=== PATIENT | male | born 1970 | race Caucasian/White ===

== ENCOUNTER 2018-05-16 01:36 | Emergency (ER) | payer OTHER ==
--- NOTE | 2018-05-16 01:47 | PDOC ---
History of Present Illness - General Stated Complaint: ABD PAIN Time Seen by Provider: 05/16/18 01:44 - History of Present Illness Initial Comments: 05/16/18 01:45 48 yo M with h/o gastritis, appendectomy who p/w RLQ abdominal pain. 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 + Nausea without vomiting. In normal state of health before sleeping. Normal bowel habits and PO intake. Denies abdominal trauma. Denies h/o similar sx. Pain not alleviated with Motrin. Patient denies N/V, F,C, CP, palpitations, SOB, urinary complaints, abdominal pain, diarrhea, constipation, hematuria, testicular pain, BPR, lightheadedness, weakness, sensory changes. PMHx: as noted above. ROS: as noted SHx: Denies tobacco use, IVDA. Social Etoh. Allergies: NKDA Past History - Past Medical History Allergies/Adverse Reactions: Allergies Allergy/AdvReac Type Severity Reaction Status Date / Time No Known Allergies Allergy Verified 05/16/18 01:58 Home Medications: Ambulatory Orders Ibuprofen [Motrin -] 600 mg PO TID #21 tablet 05/16/18 Tamsulosin HCl [Flomax -] 0.4 mg PO DAILY 7 Days #7 capsule 05/16/18 Anemia: No Asthma: No Cancer: No Cardiac Disorders: No CVA: No COPD: No CHF: No Dementia: No Diabetes: No GI Disorders: No Disorders: No HTN: No Hypercholesterolemia: No Liver Disease: No Seizures: No Thyroid Disease: No - Surgical History Abdominal Surgery: No Appendectomy: Yes Cardiac Surgery: No Cholecystectomy: No Lung Surgery: No Neurologic Surgery: No Orthopedic Surgery: No - Suicide/Smoking/Psychosocial Hx Smoking Status: No Smoking History: Never smoked Number of Cigarettes Smoked Daily: 0 Hx Alcohol Use: Yes (on the weekend) Drug/Substance Use Hx: No Substance Use Type: None Hx Substance Use Treatment: No Review of Systems - Review of Systems Comments:: 05/16/18 01:45 GENERAL/CONSTITUTIONAL: No fever or chills. No weakness. HEAD, EYES, EARS, NOSE AND THROAT: No change in vision. No ear pain or discharge. No sore throat. CARDIOVASCULAR: No chest pain or shortness of breath RESPIRATORY: No cough, wheezing, or hemoptysis. GASTROINTESTINAL: + Abdominal pain and nausea. No vomiting, diarrhea or constipation. GENITOURINARY: No dysuria, frequency, or change in urination. MUSCULOSKELETAL: No joint or muscle swelling or pain. No neck or back pain. SKIN: No rash NEUROLOGIC: No headache, vertigo, loss of consciousness, or change in strength/ sensation. ENDOCRINE: No increased thirst. No abnormal weight change HEMATOLOGIC/LYMPHATIC: No anemia, easy bleeding, or history of blood clots. ALLERGIC/IMMUNOLOGIC: No hives or skin allergy. *Physical Exam - Physical Exam Comments: 05/16/18 01:46 GENERAL: Awake, alert, and fully oriented, in no acute distress HEAD: No signs of trauma, normocephalic, atraumatic EYES: PERRLA, EOMI, sclera anicteric, conjunctiva clear ENT: Hearing grossly normal, nares patent, oropharynx clear without exudates. Moist mucosa NECK: Normal ROM, supple, no lymphadenopathy, JVD, or masses LUNGS: No distress, speaks full sentences, clear to auscultation bilaterally HEART: Regular rate and rhythm, normal S1 and S2, no murmurs, rubs or gallops, peripheral pulses normal and equal bilaterally. ABDOMEN: + RLQ/suprpapubic ttp. Soft, NDS normoactive bowel sounds. No guarding , no rebound. No masses. Neg CVA ttp. EXTREMITIES : Normal inspection, Normal range of motion, no edema. No clubbing or cyanosis. SKIN: Warm, Dry, normal turgor, no rashes or lesions noted ED Treatment Course - LABORATORY CBC & Chemistry Diagram: 05/16/18 01:59 05/16/18 01:59 Medical Decision Making - Medical Decision Making 05/16/18 02:06 48 yo M with h/o gastritis, nephrolithiasis, appendectomy who p/w RLQ abdominal pain. VSS, AF, + RLQ abdominal ttp. Will consider cystitis, nephrolithiasis diverticulitis, colitis, constipation. Low suspicion AAA, Ao dissection, pyelnoeprhitis. Pain control, hydration, reassess. Ed Course: CBC, CMP, UA, UCx. NS, Zofran, Tylenol 05/16/18 02:40 05/16/18 03:12 UA: 2+ LE, Neg nitrite, 3+ Blood, 1070 RBC, 38 WBC 11/30/18 03:13 CBC,CMP: Unremarkable 05/16/18 03:[address] 05/16/18 04:56 CT: 2.9x5.3 mm stone in proximal R ureter near ureteropelvic junction, with slight right hydronephrosis. non obstructing right renal stone as well. 1.3 cm left renal pelvis stone, non obstructing. no left ureteral stones. left renal cysts. one cyst measures 10 cm. Patient stable for d/c with return precautions. Advised tp f/u with PMD, and urology. Tamsulosin and Ibuprofen sent to pharmacy. *DC/Admit/Observation/Transfer Diagnosis at time of Disposition: Abdominal pain Qualifiers: Abdominal location: left lower quadrant Qualified Code(s): R10.32 - Left lower quadrant pain - Discharge Dispostion Condition at time of disposition: Stable Decision to Admit order: No - Prescriptions Prescriptions: Ibuprofen [Motrin -] 600 mg PO TID #21 tablet Tamsulosin HCl [Flomax -] 0.4 mg PO DAILY 7 Days #7 capsule - Referrals Referrals: Nam Vital [Primary Care Provider] - Elijah Sawant MD [Staff Physician] - - Patient Instructions Printed Discharge Instructions: DI for Abdominal Pain-Adult Additional Instructions: Please return to the emergency department with any new or worsening symptoms or concerns. Please follow up with your urology within 72 hours. Please take ibuprofen and tamsulosin as prescribed. - Post Discharge Activity - Attestations Physician Attestion: 05/16/18 01:46 I attest to the information provided in this note.
[2018-05-16 01:59] VITALS: BMI 30.9
[2018-05-16] MEDS ORDERED: ONDANSETRON 4 MG/2 ML VIAL IVPB ONE (02:01)
[2018-05-16] MEDS ORDERED: ACETAMINOPHEN 1000 MG/100 ML VIAL (NON FORMULARY) IVPB ONE (02:02)
[2018-05-16] MEDS ORDERED: SODIUM CHLORIDE 1,000 ML IV STA (02:02)
[2018-05-16] MEDS ORDERED: ONDANSETRON 4 MG/2 ML VIAL ONE (02:04)
[2018-05-16] MEDS ORDERED: ACETAMINOPHEN INJECTION 100 ML IVPB ONE (02:04)
[2018-05-16 02:13] LABS: BASO % 0.4 % (0-2.0); EOS % 3.4 % (0-4.5); HEMOGLOBIN 14.3 GM/dL (11.7-16.9); LYMPH % 35.2 % (8-40); MCH 31.7 pg (25.7-33.7); MCHC 34.8 g/dl (32.0-35.9); MEAN CELL VOLUME 91.1 fl (80-96); MEAN PLT VOLUME 9.5 fl (7.5-11.1); MONO % 9.4 % (3.8-10.2); NEUT % 51.6 % (42.8-82.8); PLATELET COUNT 256 K/MM3 (134-434); RDW 12.7 % (11.9-15.9); WHITE BLOOD COUNT 4.7 K/mm3 (4.0-10.0)
[2018-05-16 02:17] LABS: URINE APPEARANCE CLOUDY; URINE BILIRUBIN NEGATIVE (<2.0 mg/dL); URINE COLOR YELLOW; URINE GLUCOSE (UA) NEGATIVE (NEGATIVE); URINE KETONE NEGATIVE (NEGATIVE); URINE LEUK ESTERASE TRACE (NEGATIVE); URINE NITRITE NEGATIVE (NEGATIVE); URINE PROTEIN 2+ (NEGATIVE); URINE UROBILINOGEN NEGATIVE mg/dL (0.2-1.0)
--- NOTE | 2018-05-16 02:39 | PDOC ---
Attending Attestation - Resident Resident Name: Adán Royal - ED Attending Attestation I have performed the following: I have examined & evaluated the patient, The case was reviewed & discussed with the resident, I agree w/resident's findings & plan, Exceptions are as noted - HPI HPI: 05/16/18 02:38 48y M hx of kidney stones presents with RLQ pain since this evening, woke him from sleep, is sharp, radiates slightly up his flank, associated nausea/ vomiting x 2 that was nonbilious nonbloody. Pt was fine last night wihtout any discomfort. no bpr, dairrhea, dysuria, testciular pain, f/c, cp, sob, penile dc no improvement with motrin prior to arrival. vitals normal here - Physicial Exam PE: 05/16/18 02:50 GENERAL: The patient is awake, alert, and fully oriented, Nontoxic - in no acute distress. HEAD: Normocephalic, atraumatic. EYES: extraocular movements intact, sclera anicteric, conjunctiva clear. ENT: Normal voice, Moist mucous membranes. NECK: Normal range of motion, supple LUNGS: Breath sounds equal, clear to auscultation bilaterally. No wheezes, no rhonchi, no rales. HEART: Regular rate and rhythm, normal S1 and S2 without murmur, rub or gallop. ABDOMEN: Soft, nontender, . No guarding, no rebound. . No CVA tenderness EXTREMITIES: Normal range of motion, NEUROLOGICAL: No facial assymetry, Normal speech, PSYCH: Normal mood, normal affect. SKIN: Warm, Dry, normal turgor, - Medical Decision Making 05/16/18 02:50 suspect possible kidney stones will ck UA, basic labs tylenol for pain sp appendectomy will reassess 05/16/18 03:32 pts UA cw hematuria will obtain spiral ct to r/o stone 05/16/18 05:11 ct spiral noted for 2.9 x 5.3mm stone pts pain is controled no signs of infection will dc with urology fu return precautions were discussed
[2018-05-16 02:42] LABS: EPI CELLS RARE /HPF (FEW); URINE MUCUS MANY
[2018-05-16 02:59] LABS: ALK PHOS 86 U/L (45-117); ANION GAP 8 MMOL/L (8-16); BILIRUBIN,TOTAL 0.6 mg/dL (0.2-1); BLOOD UREA NITROGEN 19 mg/dL (7-18); CALCIUM 8.7 mg/dL (8.5-10.1); CHLORIDE 105 mmol/L (98-107); CO2 27 mmol/L (21-32); GLUCOSE,RANDOM 100 mg/dL (74-106); SGOT/AST 28 U/L (15-37); SGPT/ALT 47 U/L (13-61); SODIUM 140 mmol/L (136-145); TOT PROT 7.2 g/dl (6.4-8.2)
[2018-05-16 05:31] VITALS: BP 101/67; PULSE 62; TEMP 98.2
== END 2018-05-16 05:32 | disposition home or self-care (01) ==
LOC: JER 01:36
PROC: 3E033NZ Introduction of Analgesics, Hypnotics, Sedatives into Peripheral Vein, Percutaneous Approach (ICD-10-PCS; principal; 2018-05-16)
PROC: 3E033GC Introduction of Other Therapeutic Substance into Peripheral Vein, Percutaneous Approach (ICD-10-PCS; 2018-05-16)
PROC: 3E0337Z Introduction of Electrolytic and Water Balance Substance into Peripheral Vein, Percutaneous Approach (ICD-10-PCS; 2018-05-16)
DX: R10.32 Left lower quadrant pain (principal)
CPT/HCPCS: 36415; 74176; 80053; 81003; 81015; 83690; 85025; 87086; 99284-25; J0131; J7030

== ENCOUNTER 2021-10-21 07:37 | Emergency (ER) | payer OTHER ==
[2021-10-21 07:51] VITALS: BP 151/96; PULSE 94; TEMP 97.8; BMI 33.9
== END 2021-10-21 10:32 | disposition home or self-care (01) ==
LOC: JER 07:37
DX: U07.1 COVID-19 (principal); J02.9 Acute pharyngitis, unspecified
CPT/HCPCS: 0241U-QW; 87807; 99283-25; C9803-CS; U0003; U0005

== ENCOUNTER 2023-07-23 12:23 | Emergency (ER) | payer OTHER ==
[2023-07-23 12:31] VITALS: BP 136/86; PULSE 65; RESP 19; TEMP 97.6; BMI 35.2
[2023-07-23] MEDS ORDERED: ONDANSETRON 4 MG/2 ML VIAL ONE (14:00)
[2023-07-23] MEDS: SODIUM CHLORIDE 0.9% 500 ML INFUS.BAG IV ONE (14:25)
[2023-07-23] MEDS: ONDANSETRON 4 MG/2 ML VIAL IVPUSH ONE (14:25)
[2023-07-23 14:29] LABS: BASO % 0.1 % (0-2.0); EOS % 0.9 % (0-4.5); HEMATOCRIT 43.4 % (35.4-49); HEMOGLOBIN 15.1 GM/dL (11.7-16.9); LYMPH % 13.2 % (8-40); MCH 30.5 pg (25.7-33.7); MCHC 34.8 g/dl (32.0-35.9); MEAN CELL VOLUME 87.7 fl (80-96); MEAN PLT VOLUME 8.8 fl (7.5-11.1); MONO % 6.2 % (3.8-10.2); NEUT % 79.6 % (42.8-82.8); PLATELET COUNT 270 10^3/uL (134-434); RBC 4.95 M/mm3 (4.00-5.60); RDW 13.1 % (11.9-15.9); WHITE BLOOD COUNT 6.8 K/mm3 (4.0-10.0)
[2023-07-23 14:50] LABS: POTASSIUM 4.2 mmol/L (3.5-5.1)
[2023-07-23 14:52] LABS: ALBUMIN 4.2 g/dl (3.4-5.0); CALCIUM 9.7 mg/dL (8.5-10.1)
[2023-07-23 14:53] LABS: BLOOD UREA NITROGEN 16.5 mg/dL (7-18)
[2023-07-23 14:57] LABS: BILIRUBIN,TOTAL 0.7 mg/dL (0.2-1); TOT PROT 7.9 g/dl (6.4-8.2)
== END 2023-07-23 15:27 | disposition home or self-care (01) ==
LOC: JER 12:23
PROC: 3E033GC Introduction of Other Therapeutic Substance into Peripheral Vein, Percutaneous Approach (ICD-10-PCS; principal; 2023-07-23)
DX: R11.2 Nausea with vomiting, unspecified (principal); R42 Dizziness and giddiness; Z20.822 Contact with and (suspected) exposure to COVID-19
CPT/HCPCS: 0241U-QW; 36415; 80053; 82962; 83690; 85025; 93005; 93010; 99284-25